=== PATIENT | male | born 1990 | race Caucasian/White ===

== ENCOUNTER 2018-07-15 00:55 | Emergency (ER) | payer SELFPAY ==
[~2018-07-15] VITALS: Ht 175.3 cm; Wt 82.0 kg
[2018-07-15] MEDS ORDERED: ACETAMINOPHEN 325MG TABLET PO ONE (03:00)
[2018-07-15 05:06] VITALS: BP 138/74
== END 2018-07-15 05:06 | disposition home or self-care (01) ==
LOC: ER 01:23
DX: R51 Headache (principal)
CPT/HCPCS: 99284